=== PATIENT | male | born 1990 | race Caucasian/White ===

== ENCOUNTER 2020-04-29 00:32 | Inpatient (IN) | payer SELFPAY ==
--- NOTE | 2020-04-29 00:51 | W.ED.PSYCH ---
HPI - Psych General: Chief Complaint: Psychiatric Symptoms Stated Complaint: SI Time Seen by Provider: 04/29/20 00:41 Source: patient Mode of arrival: ambulatory Limitations: no limitations History of Present Illness: HPI Narrative: Patient comes in today for attempting suicide. Police Department had brought patient in after finding him in the shower with a cut li to his left forearm. The injury is superficial but the patient does admit that he feels suicidal and wants to kill himself. Patient does have a history of depression. Patient states that he is upset because his estranged partner trying to take the children away from him. Patient is cooperative at once admission into the neuropsychiatric unit. Patient does take duloxetine and trazodone. Patient does admit to using nicotine tobacco and cannabis products. MD complaint: suicidal ideation and feels depressed Associated symptoms: Reports suicidal ideation Review of Systems General: Reports: 10 or more systems reviewed and unremarkable except in HPI and below Psych: Reports: suicidal ideation [facility] ED PFSH: Social History (Updated 01/04/20 @ 15:00 by Satinder Mitchell LPN) Smoking and tobacco status: current every day smoker smokeless tobacco Smokeless tobacco user: chewing tobacco Smokeless tobacco details: 2 cans/ day for 17 yrs Quit status (tobacco): has tried quititng Number of times tried to quit tobacco: 3 Second hand smoke exposure: No Smoking risk assessment/counseling performed?: Yes Tobacco counseling given: counseling >3 minutes Physical Exam Const: COMMON NORMALS: no acute distress and patient oriented x3 GENERAL APPEARANCE: cooperative and well kempt HENMT: COMMON NORMALS: normocephalic and Normal external nose present HEAD & SCALP: normal to inspection and normocephalic NOSE: Normal external nose present MOUTH: Normal oral and palatal mucosa present Eye: GENERAL EYE: appearance normal, both eyes and all related structures Neck/C-Spine: COMMON NORMALS: full ROM Chest: COMMONS NORMALS: normal inspection of the chest Resp: COMMON NORMALS: normal respiratory effort EFFORT & INSPECTION: Yes able to speak in complete sentences Cardio: COMMON NORMALS: regular rate and regular rhythm RATE: regular rate RHYTHM: regular rhythm GI: COMMON NORMALS: non-tender : COMMON NORMALS: Yes no CVA tenderness BLADDER/KIDNEY EXAM: Yes no CVA tenderness Back/Pelvis: COMMON NORMALS: no CVA tenderness and thoracic and lumbar spine normal to inspection Extremity: COMMON NORMALS: normal to inspection Neuro: COMMON NORMALS: patient oriented x3 and moves all extremities Psych: COMMON NORMALS: mental status grossly normal, Normal thought process present, cooperative and speech normal APPEARANCE: Yes well kempt ATTITUDE: Yes calm ACTIVITY/MOTOR BEHAVIOR: Yes appropriate eye contact SPEECH: Yes normal speech MOOD & AFFECT: Yes depressed mood and Yes tearful THOUGHT PROCESS: Normal thought process present THOUGHT CONTENT: Yes Suicidality present ATTENTION/CONCENTRATION: Yes attention grossly intact MEMORY/COGNITION: Yes memory grossly intact INSIGHT: Fair insight present (Psych) JUDGEMENT: Fair judgement present (Psych) Skin: NARRATIVE SKIN EXAM: Superficial 2 cm laceration to the right forearm. MDM - Psych MDM Narrative: Medical decision making narrative: Patient was brought in by [facility] department for concerns of suicide attempt. Patient has a superficial laceration to his left forearm. Patient had called his parents and told him that he was going to kill himself and then hung up the phone. Causing his parents to call the police for a welfare check. Police into the home and found the patient in the bathtub with a shower arm and his left forearm with a superficial injury. Exam notes a 2 cm superficial injury to the left forearm. Respirations are even lungs are clear to auscultation. Patient was cooperative. Patient did admit to wanting to harm himself and commit suicide. Patient was upset due to his estranged partner trying to take the children away from him. Laboratory values were unremarkable. Patient did test positive for cannabis. Reviewed exam and patient with Dr. Villeda who agreed to admission to the neuropsychiatric unit. Dr. Parker was consulted for orders for admission. Patient needs admission for protection of self and assistance with depression. Lab Data: Labs: Lab Results 04/29/20 04/29/20 04/29/20 Range/Units 00:51 00:51 00:51 WBC 13.2 H (4.0-10.0) 10^3/ uL RBC 4.79 (4.1-5.3) 10^6/u L Hgb 15.3 (11.7-16.6) g/dL Hct 45.4 (42.0-52.0) % MCV 94.8 H (80-94) fL MCH 31.9 (28.0-34.0) pg MCHC 33.7 (30.0-36.0) g/dL RDW 12.3 (12.1-15.1) % Plt Count 290 (130-400) 10^3/c mm MPV 8.8 (7.4-10.4) fL Neut % (Auto) 77.5 % Lymph % (Auto) 15.6 % [place] % (Auto) 6.2 % Eos % (Auto) 0.2 % Baso % (Auto) 0.3 % Neut # (Auto) 10.2 H (1.8-7.7) 10^3/u L Lymph # (Auto) 2.1 (0.8-4.8) 10^3/u L [place] # (Auto) 0.8 (0.2-0.9) 10^3/u L Eos # (Auto) 0.0 (0.0-0.8) 10^3/u L Baso # (Auto) 0.0 (0.0-0.1) 10^3/u L Nucleated RBC % (a uto) 0 % Nucleated RBCs # 0.0 /100WBC Sodium 137 (136-145) mmol/L Potassium 4.3 (3.5-5.1) mmol/L Chloride 101 (98-107) mmol/L Carbon Dioxide 24 (22-29) mmol/L Anion Gap 16.3 (5-19) BUN 9 (6-20) mg/dL Creatinine 1.0 (0.7-1.2) mg/dL GFR Calculation 87.7 L (90-130) mL/min Glucose 96 (65-115) mg/dL Calculated Osmolal ity 280 L (285-295) mOsm/k g Calcium 10.2 (8.5-10.5) mg/dL Magnesium 2.3 (1.7-2.3) mg/dL Total Bilirubin 0.5 (0.15-1.2) mg/dL AST 23 (0-40) U/L ALT 17 (0-41) U/L Alkaline Phosphata se 61 (40-130) IU/L Total Protein 7.6 (6.6-8.7) g/dL Albumin 4.9 (3.5-5.2) g/dL Globulin 2.7 (1.3-4.6) g/dL TSH 2.00 (0.27-4.20) uIU/ mL Urine Color (Yellow) Urine Appearance (CLEAR) Urine pH (5-7) Ur Specific Gravit y (1.005-1.030) Urine Protein (Negative) Urine Glucose (UA) (Normal) Urine Ketones (Negative) Urine Blood (Negative) Urine Nitrate (Negative) Urine Bilirubin (NEGATIVE) Urine Urobilinogen (Negative) mg/dL Ur Leukocyte Luzmaria ase (Negative) Urine RBC (0-2) /hpf Urine WBC (0-5) /hpf Ur Squamous Epith Cells (0-5) Urine Bacteria (NONE) Salicylates < 0.3 L (3-10) mg/dL Urine Opiates Scre en (Negative) ng/mL Acetaminophen < 5.0 L (10-30) ug/mL Ur Barbiturates Sc reen (Negative) ng/mL Phenytoin < 0.8 L (10-20) ug/mL Valproic Acid < 2.8 L (50-100) mcg/mL Carbamazepine < 2.0 L (4.0-12.0) ug/mL Ur Phencyclidine S crn (Negative) ng/mL Ur Amphetamines Sc reen (Negative) ng/mL U Benzodiazepines Scrn (Negative) ng/mL [place] < 0.1 L (0.6-1.2) mmol/L Urine Cocaine Scre en (Negative) ng/mL U Marijuana (THC) Screen (Negative) ng/mL Ethyl Alcohol < 10 (0-10) mg/dL 04/29/20 04/29/20 Range/Units 01:02 01:02 WBC (4.0-10.0) 10^3/ uL RBC (4.1-5.3) 10^6/u L Hgb (11.7-16.6) g/dL Hct (42.0-52.0) % MCV (80-94) fL MCH (28.0-34.0) pg MCHC (30.0-36.0) g/dL RDW (12.1-15.1) % Plt Count (130-400) 10^3/c mm MPV (7.4-10.4) fL Neut % (Auto) % Lymph % (Auto) % [place] % (Auto) % Eos % (Auto) % Baso % (Auto) % Neut # (Auto) (1.8-7.7) 10^3/u L Lymph # (Auto) (0.8-4.8) 10^3/u L [place] # (Auto) (0.2-0.9) 10^3/u L Eos # (Auto) (0.0-0.8) 10^3/u L Baso # (Auto) (0.0-0.1) 10^3/u L Nucleated RBC % (a uto) % Nucleated RBCs # /100WBC Sodium (136-145) mmol/L Potassium (3.5-5.1) mmol/L Chloride (98-107) mmol/L Carbon Dioxide (22-29) mmol/L Anion Gap (5-19) BUN (6-20) mg/dL Creatinine (0.7-1.2) mg/dL GFR Calculation (90-130) mL/min Glucose (65-115) mg/dL Calculated Osmolal ity (285-295) mOsm/k g Calcium (8.5-10.5) mg/dL Magnesium (1.7-2.3) mg/dL Total Bilirubin (0.15-1.2) mg/dL AST (0-40) U/L ALT (0-41) U/L Alkaline Phosphata se (40-130) IU/L Total Protein (6.6-8.7) g/dL Albumin (3.5-5.2) g/dL Globulin (1.3-4.6) g/dL TSH (0.27-4.20) uIU/ mL Urine Color Straw (Yellow) Urine Appearance Clear (CLEAR) Urine pH 6.5 (5-7) Ur Specific Gravit y 1.010 (1.005-1.030) Urine Protein Neg (Negative) Urine Glucose (UA) Norm (Normal) Urine Ketones Negative (Negative) Urine Blood Neg (Negative) Urine Nitrate Negative (Negative) Urine Bilirubin Neg (NEGATIVE) Urine Urobilinogen Norm (Negative) mg/dL Ur Leukocyte Luzmaria ase Negative (Negative) Urine RBC Rare (0-2) /hpf Urine WBC 0-4 H (0-5) /hpf Ur Squamous Epith Cells 0-4 H (0-5) Urine Bacteria Trace (NONE) Salicylates (3-10) mg/dL Urine Opiates Scre en Negative (Negative) ng/mL Acetaminophen (10-30) ug/mL Ur Barbiturates Sc reen Negative (Negative) ng/mL Phenytoin (10-20) ug/mL Valproic Acid (50-100) mcg/mL Carbamazepine (4.0-12.0) ug/mL Ur Phencyclidine S crn Negative (Negative) ng/mL Ur Amphetamines Sc reen Negative (Negative) ng/mL U Benzodiazepines Scrn Negative (Negative) ng/mL [place] (0.6-1.2) mmol/L Urine Cocaine Scre en Negative (Negative) ng/mL U Marijuana (THC) Screen Positive H (Negative) ng/mL Ethyl Alcohol (0-10) mg/dL EKG Data^: EKG 1: Attestation: I personally reviewed and interpreted this EKG as follows: (145, sinus rhythm, rate of 99 bpm and regular, no ST elevation, no ectopy.) Discharge Plan Discharge Admit Provider: Robert Villeda Coding Level of Care Code ED Associate Professor Of Management for [facility] Fwd Exam Comprehensive
[2020-04-29 01:01] LABS: Basophils % 0.3 %; Eosinophils % 0.2 %; Hematocrit 45.4 % (42.0-52.0); Hemoglobin 15.3 g/dL (11.7-16.6); Lymphocytes # 2.1 10^3/uL (0.8-4.8); Lymphocytes % 15.6 %; Mean Corpuscular HGB Conc 33.7 g/dL (30.0-36.0); Mean Corpuscular Hemoglobin 31.9 pg (28.0-34.0); Mean Corpuscular Volume 94.8 fL (80-94); Mean Platelet Volume 8.8 fL (7.4-10.4); Monocytes # 0.8 10^3/uL (0.2-0.9); Monocytes % 6.2 %; Neutrophils # 10.2 10^3/uL (1.8-7.7); Neutrophils % 77.5 %; Nucleated Red Blood Cells % 0 %; Platelet Count 290 10^3/cmm (130-400); Red Blood Count 4.79 10^6/uL (4.1-5.3); Red Cell Distribution Width 12.3 % (12.1-15.1); White Blood Count 13.2 10^3/uL (4.0-10.0)
[2020-04-29 01:20] LABS: Carbamazepine Tegretol < 2.0 ug/mL (4.0-12.0); Phenytoin Dilantin < 0.8 ug/mL (10-20); Valproic Acid Level < 2.8 mcg/mL (50-100)
[2020-04-29] MEDS: nicotine 21 mg Patch 1 PATCH TRANSDERMA (01:22)
[2020-04-29 01:25] LABS: Bilirubin Urine Neg (NEGATIVE); Blood Urine Neg (Negative); Glucose Urine UA Norm (Normal); Ketones Urine Negative (Negative); Leukocyte Esterase Urine Negative (Negative); Nitrate Urine Negative (Negative); Protein Urine Neg (Negative); Urine Appearance Clear (CLEAR); Urine Color Straw (Yellow); Urobilinogen Urine Norm (Negative); pH Urine 6.5 (5-7)
[2020-04-29 01:25] LABS: Alanine Aminotransferase 17 U/L (0-41); Albumin Level 4.9 g/dL (3.5-5.2); Alkaline Phosphatase 61 IU/L (40-130); Anion Gap 16.3 (5-19); Aspartate Amino Transferase 23 U/L (0-40); Blood Urea Nitrogen 9 mg/dL (6-20); Calcium 10.2 mg/dL (8.5-10.5); Carbon Dioxide 24 mmol/L (22-29); Chloride 101 mmol/L (98-107); Globulin 2.7 g/dL (1.3-4.6); Glomerular Filtration Rate 87.7 mL/min (90-130); Glucose 96 mg/dL (65-115); Magnesium 2.3 mg/dL (1.7-2.3); Osmolality Calculated 280 mOsm/kg (285-295); Potassium 4.3 mmol/L (3.5-5.1); Sodium 137 mmol/L (136-145); Total Bilirubin 0.5 mg/dL (0.15-1.2); Total Protein 7.6 g/dL (6.6-8.7)
[2020-04-29 01:26] LABS: Add Urine Culture? No; Amphetamines Screen Urine Negative (Negative); Bacteria Urine TRACE; Barbiturates Screen Urine Negative (Negative); Benzodiazepines Screen Urine Negative (Negative); Cocaine Screen Urine Negative (Negative); Opiate Screen Urine Negative (Negative); PCP Screen Urine Negative (Negative); RBC Urine RARE /hpf (0-2); Squamous Epithelial Cell Urine 0-4 (0-5); THC Screen Urine Positive (Negative); WBC Urine 0-4 /hpf (0-5)
[2020-04-29 01:29] LABS: Acetaminophen < 5.0 ug/mL (10-30); Alcohol Level < 10 mg/dL (0-10); Salicylate < 0.3 mg/dL (3-10)
[2020-04-29 01:38] VITALS: BP 154/89; PULSE 96; RESP 20; TEMP 36.8; O2SAT 97; BMI 27.3
[2020-04-29 01:40] LABS: Lithium < 0.1 mmol/L (0.6-1.2)
[2020-04-29 02:03] VITALS: BP 148/85; PULSE 88; RESP 18; O2SAT 97
[2020-04-29 02:17] VITALS: BP 137/98; PULSE 104; RESP 19; TEMP 37.1; O2SAT 100
[2020-04-29] MEDS: hyDROXYzine 25 mg Capsule 50 MG PO (02:40)
[2020-04-29] MEDS: trazodone 50 mg Tablet PO (02:41)
[2020-04-29 06:00] VITALS: BP 133/80; PULSE 103; RESP 18; TEMP 36.9; O2SAT 98
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
[2020-04-29] MEDS: duloxetine 60 mg Capsule PO (16:15)
[2020-04-29 16:16] VITALS: BP 133/80; PULSE 103; RESP 18; TEMP 36.9; O2SAT 98
--- NOTE | 2020-05-01 12:39 | PC.RESP ---
SMOKING CESSATION INFORMATION SENT TO PATIENT
== END 2020-04-29 16:27 | disposition home or self-care (01) | DRG 885 ==
LOC: ER 00:45 → NP 01:56
PROVIDERS: Emergency Medicine; Admitting Provider Psychiatry & Neurology Psychiatry; Visit Provider Psychiatry & Neurology Psychiatry
DX: F33.2 Major depressive disorder, recurrent severe without psychotic features (principal); F41.9 Anxiety disorder, unspecified; F43.12 Post-traumatic stress disorder, chronic; F17.210 Nicotine dependence, cigarettes, uncomplicated; F12.20 Cannabis dependence, uncomplicated
CPT/HCPCS: 12345; 80053; 80156; 80164; 80178; 80185; 80306; 80307; 81001; 83735; 84443; 85025; 99282

== ENCOUNTER 2020-11-29 23:14 | Emergency (ER) | payer SELFPAY ==
[2020-11-29 23:24] VITALS: BP 158/107; PULSE 86; RESP 24; TEMP 36.7; O2SAT 96; BMI 29.2
--- NOTE | 2020-11-29 23:46 | W.ED.DENTAL ---
HPI - Dental/Oral General: Chief complaint: Dental/Oral Stated complaint: oral pain Time Seen by Provider: 11/29/20 23:30 History of Present Illness: HPI Narrative: Patient has a wisdom tooth that is coming through on the left upper sides been present for about a month and he has intermittent pain with this area. MD Complaint: tooth pain Teeth map: 1. Onset (ago): hour(s) Duration: constant Severity: severe Severity scale (1-10): 7 Relieving factors: nothing Context: poor dental care Associated symptoms: Reports no associated symptoms; Denies fever(s) Treatment prior to arrival: topical analgesic and oral analgesic Review of Systems Const: Denies: fever(s) or chills ENMT: Reports: other (Impacted wisdom tooth) Psych: Denies: anxiety or depression PFS ED PFSH: Social History (Updated 01/04/20 @ 15:00 by Satidner Mitchell LPN) Smoking and tobacco status: current every day smoker smokeless tobacco Smokeless tobacco user: chewing tobacco Smokeless tobacco details: 2 cans/ day for 17 yrs Quit status (tobacco): has tried quititng Number of times tried to quit tobacco: 3 Second hand smoke exposure: No Smoking risk assessment/counseling performed?: Yes Tobacco counseling given: counseling >3 minutes Physical Exam Const: COMMON NORMALS: average body habitus GENERAL APPEARANCE: cooperative OTHER: Appears in pain HENMT: TEETH & GINGIVA IMAGES: 1. [place] tooth coming through the side of the gum Psych: COMMON NORMALS: mental status grossly normal Course Vital Signs: Vital signs: Vital Signs Temperature 98.1 F 11/29/20 23:24 Pulse Rate 86 11/29/20 23:24 Respiratory Rate 24 H 11/29/20 23:24 Blood Pressure 158/107 11/29/20 23:24 Pulse Oximetry 96 11/29/20 23:24 Discharge Plan Discharge Patient Disposition: Home Clinical Impression: Impacted tooth Condition: Stable Prescriptions: New tramadol 50 mg tablet 50 mg PO TID PRN (Reason: pain) Qty: 14 RF: 0 clindamycin HCl 300 mg capsule 300 mg PO TID 10 Days Qty: 30 RF: 0 No Action prazosin 5 mg capsule 5 mg PO .HS Qty: 30 RF: 2 trazodone 100 mg tablet 200 mg PO .HS Qty: 60 RF: 2 duloxetine 30 mg Capsule,Delayed Release(Dr/Ec) 60 mg PO DAILY 30 Days Qty: 60 RF: 1 Discharge Orders: Discharge ED (Routine); Ordered 11/29/20 Ordered By: Reji Barrientos Discharge Diet: Usual diet Discharge Activity: Resume usual activity Patient Instructions: Toothache (ED) Activity Restrictions/Additional Instructions: Follow-up with medical provider as directed. Take medications as prescribed. Return to the ER or your medical provider if condition worsens. Please read and understand discharge instructions. If any questions ask please. Follow-up at [facility] in [place] are the [facility] clinic here in [place] or with a dentist as soon as possible Coding Level of Care Code ED Occupational Medicine Specialist for [facility]
[2020-11-29] MEDS: clindamycin 150 mg Capsule 300 MG PO (23:47)
[2020-11-29] MEDS: HYDROcodone-acetaminophen 7.5-325 mg Tablet 1 TAB PO (23:47)
[2020-11-29] MEDS: TRAMadol 50 mg Tablet 100 MG PO (23:47)
== END 2020-11-29 23:53 | disposition home or self-care (01) ==
PROVIDERS: Emergency Provider Nurse Practitioner Family
DX: K01.1 Impacted teeth (principal); F17.220 Nicotine dependence, chewing tobacco, uncomplicated
CPT/HCPCS: 12345; 99281; 99283

== ENCOUNTER 2020-12-19 19:32 | Emergency (ER) | payer SELFPAY ==
[2020-12-19 19:49] VITALS: BP 145/94; PULSE 97; RESP 14; TEMP 36.3; O2SAT 98; BMI 25.8
--- NOTE | 2020-12-19 19:49 | W.ED.DENTAL ---
HPI - Dental/Oral General: Chief complaint: Dental/Oral Stated complaint: abcess tooth Time Seen by Provider: 12/19/20 19:45 Source: patient Mode of arrival: ambulatory Limitations: no limitations History of Present Illness: HPI Narrative: Patient is a 30-year-old male who presents to ED today with a complaint of dental pain. Patient tells me he has several wisdom teeth coming in that are causing crowding of his other teeth. He states the crowding has caused one of the teeth to break. Patient was seen at our facility approximately 3 weeks ago for pain related to his wisdom teeth. He tells me he never got his prescriptions filled at that time. He was able to recently fill the prescription for clindamycin and is currently taking that. Patient has a dental appointment scheduled in January for wisdom tooth extraction. He has not noticed any facial swelling. MD Complaint: tooth pain Teeth map: 1. broken tooth; no abscess present Onset (ago): day(s) Duration: constant Severity: severe Relieving factors: other (cold fluids) Associated symptoms: Denies ear or mastoid pain, fever(s) or odynophagia Review of Systems Const: Denies: fever(s) ENMT: Reports: dental pain; Denies: odynophagia, ear or mastoid pain, nasal discharge, nasal congestion or sinus pain Card: Denies: chest pain Resp: Denies: dyspnea GI: Denies: nausea or vomiting Musc: Denies: neck pain Skin/Breast: Denies: rash Neuro: Denies: headache(s) PFS ED PFSH: Social History (Updated 01/04/20 @ 15:00 by Satinder Mitchell LPN) Smoking and tobacco status: current every day smoker smokeless tobacco Smokeless tobacco user: chewing tobacco Smokeless tobacco details: 2 cans/ day for 17 yrs Quit status (tobacco): has tried quititng Number of times tried to quit tobacco: 3 Second hand smoke exposure: No Smoking risk assessment/counseling performed?: Yes Tobacco counseling given: counseling >3 minutes Physical Exam Const: COMMON NORMALS: no acute distress, average body habitus, patient oriented x3, no limitations, healthy appearing, alert and well nourished GENERAL APPEARANCE: cooperative ORIENTATION/CONSCIOUSNESS: Yes awake, Yes oriented to person, Yes oriented to place and Yes oriented to time HENMT: COMMON NORMALS: normocephalic, atraumatic, external ears normal, Normal external nose present, moist oral mucous membranes, oropharynx normal and gingiva normal HEAD & SCALP: normal to inspection, normocephalic and atraumatic FACE & SINUS: normal facial exam and sinuses nontender NOSE: Normal external nose present EXTERNAL EAR: Yes external ears normal MOUTH: Normal oral and palatal mucosa present, lip normal, tongue normal and Normal salivary glands and ducts present TEETH & GINGIVA: Yes poor dentition and Yes other (broke tooth) THROAT: posterior oropharynx normal, tonsils normal and uvula midline Neck/C-Spine: COMMON NORMALS: full ROM, no lymphadenopathy and no meningeal signs Neuro: SKYLAR COMA SCALE: document GCS findings Skylar coma scale eye opening: Spontaneous [place] coma scale verbal response: Orientated [place] coma scale motor response: Obey commands [place] coma scale total score: 15 COMMON NORMALS: patient oriented x3 and CN's II-XII intact bilaterally SENSORIUM/ORIENTATION: Yes alert, Yes oriented to person, Yes oriented to place and Yes oriented to time MENINGEAL SIGNS: Yes no meningeal signs Skin: COMMON NORMALS: no rashes or lesions noted GENERAL SKIN EXAM: no rashes or lesions noted Course Vital Signs: Vital signs: Vital Signs Temperature 97.3 F L 12/19/20 19:49 Pulse Rate 92 12/19/20 20:09 Respiratory Rate 18 12/19/20 20:09 Blood Pressure 142/90 12/19/20 20:09 Pulse Oximetry 98 12/19/20 20:09 MDM - Dental/Oral MDM Narrative: Medical decision making narrative: He can continue taking the Clindamycin. Will give something for pain. Recommend he keep current scheduled dentist appointment. Return to ED precautions given. Discharge Plan Discharge Patient Disposition: Home Clinical Impression: Toothache Condition: Stable Prescriptions: Continued tramadol 50 mg tablet 50 mg PO TID PRN (Reason: pain) Qty: 14 RF: 0 No Action prazosin 5 mg capsule 5 mg PO .HS Qty: 30 RF: 2 trazodone 100 mg tablet 200 mg PO .HS Qty: 60 RF: 2 duloxetine 30 mg Capsule,Delayed Release(Dr/Ec) 60 mg PO DAILY 30 Days Qty: 60 RF: 1 Discharge Orders: Discharge ED (Routine); Ordered 12/19/20 Ordered By: Keisha Lofton Patient Instructions: Toothache (ED), Toothache Coding Level of Care Code ED Devops Architect for Chasity Bellamy
[2020-12-19 20:09] VITALS: BP 142/90; PULSE 92; RESP 18; O2SAT 98
== END 2020-12-19 20:09 | disposition home or self-care (01) ==
PROVIDERS: Emergency Provider Physician Assistant
DX: K08.89 Other specified disorders of teeth and supporting structures (principal); F17.220 Nicotine dependence, chewing tobacco, uncomplicated
CPT/HCPCS: 12345; 99281; 99282

== ENCOUNTER 2021-09-16 13:25 | Inpatient (IN) | payer SELFPAY ==
[2021-09-16 13:37] VITALS: BP 135/90; PULSE 112; RESP 19; TEMP 36.8; O2SAT 95; BMI 23.6
--- NOTE | 2021-09-16 13:43 | W.ED.GENADLT ---
HPI - General Adult General: Chief complaint: Psychiatric Symptoms Stated complaint: SI Time Seen by Provider: 09/16/21 13:37 History of Present Illness: HPI narrative: HPI: [31]yo patient w/ hx of depression BIBA for acute suicidal ideation. for On arrival, the patient is AAOx3 and cooperative with my evaluation. No focal complaints of chest pain, shortness of breath, palpitations, N/V, focal GI/ complaints. Denies any HI. No complaints of hallucinations. Onset: chronic Duration: ongoing Location: home Severity: severe Review of Systems Narrative: Constitutional: No fever, no chills. HEENT: No vision changes CV: No chest pain, no palpitations PULM: No productive cough, no dyspnea. GI: No abdominal pain, no N/V/D. : No dysuria MSKEL: No muscle pain SKIN: No new rashes, no lesions. NEURO: No headache, no focal weakness. HEME: No visible bruises PSYCH: Depressed mood, +SI PFSH ED PFSH: Social History (Updated 01/04/20 @ 15:00 by Satinder Mitchell LPN) Smoking and tobacco status: current every day smoker smokeless tobacco Smokeless tobacco user: chewing tobacco Smokeless tobacco details: 2 cans/ day for 17 yrs Quit status (tobacco): has tried quititng Number of times tried to quit tobacco: 3 Second hand smoke exposure: No Smoking risk assessment/counseling performed?: Yes Tobacco counseling given: counseling >3 minutes Physical Exam Narrative: EXAM NARRATIVE: Head: Atraumatic Eyes: PERRL, conjunctiva without injection, eyes tracking ENT: Mucous membrane moist NECK: Supple without lymphadenopathy LUNGS: LCTAB CV: RRR ABDOMEN: Soft, nontender EXTREMITY: Normal ROM SKIN: No rash or erythema NEURO: Awake and alert. No focal weakness PSYCH: Cooperative mood and affect. Course Vital Signs: Vital signs: Vital Signs Temperature 97.3 F L 09/18/21 06:00 Pulse Rate 63 09/18/21 06:00 Respiratory Rate 16 09/18/21 06:00 Blood Pressure 107/63 09/18/21 06:00 Pulse Oximetry 97 09/18/21 06:00 MDM - General Adult MDM Narrative: Medical decision making narrative: [31]yo patient w/ hx of depression presenting for SI. HDS, exam within normal limit Thoughts are linear and organized, and the patient has no AH/VH, or HI. Clinically the patient displays no overt toxidrome; they are well appearing, with low suspicion for toxic ingestion given history and exam. Symptoms unlikely 2/2 anemia, hypothyroidism, infection, or ICH. Workup: CBC, CMP, Lipase, salicylate/tylenol, UDS Lab findings: wnl, +ampethamine in urine, and +marijuana in urine [3:50pm] On reassessment, labs and workup wnl. Patient is hemodynamically stable with no acute medical complaints. Case discussed with psychiatric provider Dr. Villeda at [facility] psych inpatient with recommendation for admission Disposition: Psych Lab Data: Labs: Lab Results 09/16/21 09/16/21 09/16/21 14:22 15:14 15:14 WBC 11.4 10^3/uL H 10 ^3/uL (4.0-10.0) RBC 5.22 10^6/uL 10^6 /uL (4.1-5.3) Hgb 16.6 g/dL g/dL (11.7-16.6) Hct 48.3 % % (42.0-52.0) MCV 92.5 fl fl (80-94) MCH 31.8 pg pg (28.0-34.0) MCHC 34.4 g/dL g/dL (30.0-36.0) RDW 12.6 % % (12.1-15.1) Plt Count 285 10^3/cmm 10^3 /cmm (130-400) MPV 8.8 fL fL (7.4-10.4) Neut % (Auto) 67.8 % % Lymph % (Auto) 22.3 % % Runnels % (Auto) 8.3 % % Eos % (Auto) 1.0 % % Baso % (Auto) 0.4 % % Neut # (Auto) 7.72 10^3/uL H 10 ^3/uL (1.8-7.7) Lymph # (Auto) 2.5 10^3/uL 10^3/ uL (0.8-4.8) Runnels # (Auto) 0.9 10^3/uL 10^3/ uL (0.2-0.9) Eos # (Auto) 0.1 10^3/uL 10^3/ uL (0.0-0.8) Baso # (Auto) 0.0 10^3/uL 10^3/ uL (0.0-0.1) Nucleated RBC % (a uto) 0 % % Nucleated RBCs # 0.0 /100WBC /100W BC Sodium 134 mmol/L L mmol /L (136-145) Potassium 4.2 mmol/L mmol/L (3.5-5.1) Chloride 98 mmol/L mmol/L (98-107) Carbon Dioxide 19 mmol/L L mmol/ L (22-29) Anion Gap 21.2 H (5-19) BUN 15 mg/dL mg/dL (6-20) Creatinine 1.0 mg/dL mg/dL (0.7-1.2) GFR Calculation 86.6 mL/min L mL/ min (90-130) Glucose 77 mg/dL mg/dL (65-115) Calculated Osmolal ity 278 mOsm/kg L mOs m/kg (285-295) Calcium 9.6 mg/dL mg/dL (8.5-10.5) Salicylates < 0.3 mg/dL L mg/ dL (3-10) Urine Opiates Scre en Negative ng/mL ng /mL (Negative) Acetaminophen < 5.0 ug/mL L ug/ mL (10-30) Ur Barbiturates Sc reen Negative ng/mL ng /mL (Negative) Ur Phencyclidine S crn Negative ng/mL ng /mL (Negative) Ur Amphetamines Sc reen Positive ng/mL H ng/mL (Negative) U Benzodiazepines Scrn Negative ng/mL ng /mL (Negative) Urine Cocaine Scre en Negative ng/mL ng /mL (Negative) U Marijuana (THC) Screen Positive ng/mL H ng/mL (Negative) Discharge Plan Discharge Patient Disposition: Admitted As Inpatient Admit Provider: Robert Villeda Clinical Impression: Suicide ideation Condition: Stable Coding Level of Care Code ED Technology Applications Teacher for Chasity Bellamy
--- NOTE | 2021-09-16 13:50 | PC.PHAR ---
PT STATES HE TAKES NO RX OR OTC MEDICATIONS-PT STATES HE HASNT TAKEN RX MEDICATION IN AT LEAST 6 MONTHS
[2021-09-16 14:06] VITALS: BP 122/81; PULSE 112; RESP 16; TEMP 36.9; O2SAT 96
[2021-09-16 14:39] LABS: Amphetamines Screen Urine Positive (Negative); Barbiturates Screen Urine Negative (Negative); Benzodiazepines Screen Urine Negative (Negative); Cocaine Screen Urine Negative (Negative); Opiate Screen Urine Negative (Negative); PCP Screen Urine Negative (Negative); THC Screen Urine Positive (Negative)
[2021-09-16 15:25] LABS: Basophils % 0.4 %; Eosinophils # 0.1 10^3/uL (0.0-0.8); Hematocrit 48.3 % (42.0-52.0); Hemoglobin 16.6 g/dL (11.7-16.6); Lymphocytes # 2.5 10^3/uL (0.8-4.8); Lymphocytes % 22.3 %; Mean Corpuscular HGB Conc 34.4 g/dL (30.0-36.0); Mean Corpuscular Hemoglobin 31.8 pg (28.0-34.0); Mean Corpuscular Volume 92.5 fl (80-94); Mean Platelet Volume 8.8 fL (7.4-10.4); Monocytes # 0.9 10^3/uL (0.2-0.9); Monocytes % 8.3 %; Neutrophils # 7.72 10^3/uL (1.8-7.7); Neutrophils % 67.8 %; Nucleated Red Blood Cells % 0 %; Platelet Count 285 10^3/cmm (130-400); Red Blood Count 5.22 10^6/uL (4.1-5.3); Red Cell Distribution Width 12.6 % (12.1-15.1); White Blood Count 11.4 10^3/uL (4.0-10.0)
[2021-09-16 15:44] LABS: Anion Gap 21.2 (5-19); Blood Urea Nitrogen 15 mg/dL (6-20); Calcium 9.6 mg/dL (8.5-10.5); Carbon Dioxide 19 mmol/L (22-29); Chloride 98 mmol/L (98-107); Glomerular Filtration Rate 86.6 mL/min (90-130); Glucose 77 mg/dL (65-115); Osmolality Calculated 278 mOsm/kg (285-295); Potassium 4.2 mmol/L (3.5-5.1); Sodium 134 mmol/L (136-145)
[2021-09-16 15:54] LABS: Acetaminophen < 5.0 ug/mL (10-30); Salicylate < 0.3 mg/dL (3-10)
[2021-09-16 16:34] VITALS: BP 122/81; PULSE 112; RESP 16; TEMP 36.9; O2SAT 96
[2021-09-16 16:35] VITALS: BP 157/79; PULSE 94; RESP 17; TEMP 36.8; O2SAT 99
[2021-09-16] MEDS: nicotine 2 mg Gum BUCCAL (17:19)
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
--- NOTE | 2021-09-16 17:45 | PC.NURSE ---
PATIENT REPORTS A HISTORY OF BEING ADMITTED A YOUTH AT [facility] FOR BEHAVIOR ISSUES BUT DOESN'T REMEMBER TAKING MEDICATION OR GOING TO THERAPY AFTER DISCHARGE. ALSO RELATES A PREVIOUS ADMISSION AN ADULT, DX WITH PTSD, I WAS ON MEDS BUT I DON'T THINK THEY WERE THE RIGHT ONES FOR ME AND I STOPPED TAKING THEM.
[2021-09-16 20:03] VITALS: BP 124/78; PULSE 85; RESP 20; TEMP 36.6; O2SAT 98
[2021-09-16] MEDS: trazodone 50 mg Tablet PO (21:25)
[2021-09-16] MEDS: hyDROXYzine 25 mg Capsule 50 MG PO (21:25)
[2021-09-17 06:00] VITALS: BP 111/74; PULSE 69; RESP 17; TEMP 36.7; O2SAT 97
--- NOTE | 2021-09-17 11:47 | NPU.GN ---
[facility] Group Topic:Milady General Mood of Group: Fer did not attend group therapy today.
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
[2021-09-17] MEDS: nicotine 2 mg Gum BUCCAL ×2 (13:51→18:44)
[2021-09-17 14:00] VITALS: BP 119/84; PULSE 90; RESP 17; TEMP 36.6; O2SAT 95
--- NOTE | 2021-09-17 17:09 | PC.NURSE ---
CALLED [facility] TO CLARIFY HOME MEDS, THEY STATED HE FILLED 04/30/2020 & 02/2020 CYMBALTA 60 MG DAILY TRAZODONE 200 MG HS PRAZOSIN 5 MG DAILY INFO RELAYED TO DR. MAST
[2021-09-17 20:37] VITALS: BP 122/78; PULSE 74; RESP 16; TEMP 36.9; O2SAT 97
[2021-09-17] MEDS: mirtazapine 15 mg Tablet PO (21:18)
[2021-09-17] MEDS: trazodone 50 mg Tablet PO (21:18)
[2021-09-17] MEDS: BuSPIRONE 10 mg Tablet 15 MG PO (21:18)
[2021-09-17] MEDS: hyDROXYzine 25 mg Capsule 50 MG PO (21:19)
--- NOTE | 2021-09-18 03:34 | PC.NURSE ---
Fer is a 31 year old male admitted to this unit on September 16 for SI. Patient stated he did have feelings/thoughts of being better off . He stated he was trying to talk to his Mom on the phone and a patient on the unit was being loud around him. He felt that was disrespectful and eventually yelled at the other patient. Patient stated he felt bad about yelling at this other patient on the unit. Patient stated their verbal altercation, he felt bad because I'm sure he had his own problems, that's why we're all here, isn't it? Discussed healthier options to handle similar future situations to avoid altercations by letting the staff know. Discussed healthier ways to resolve such issues in the future. Patient denies any SI plans, but admitted to thinking about suicide at least two or three times today. Patient denies being sob, pain or HI at this time.
[2021-09-18 06:00] VITALS: BP 107/63; PULSE 63; RESP 16; TEMP 36.3; O2SAT 97
[2021-09-18] MEDS: BuSPIRONE 10 mg Tablet 15 MG PO ×2 (09:25→20:18)
[2021-09-18] MEDS: nicotine 2 mg Gum BUCCAL ×5 (09:25→20:59)
--- NOTE | 2021-09-18 10:46 | P.PN_ITS ---
Subjective NPU Subjective: Interval history: Patient presents today reporting that the medications have been effective thus far. He reports a plan to work with the treatment team to look at options to help avoid fighting himself in the situation again. We discussed the process by which to get his medication and making sure that he engages in follow-up to be able to continue to have access to these resources. We discussed Dr. Trivedi tomorrow and the possibility of discharge in the next 48 hours depending on what sober living follow-up in the treatment team arranged. Mental Status Exam MSE Comments: This is a short, well-nourished well-developed white male in hospital scrubs with adequate grooming and eye contact. No abnormal movements . Cooperative with exam in no acute distress. Speech was normal rate and volume. Mood described as a little better, affect congruent. Thought process organized. Thought content: Patient endorsed having suicidal ideation but denied homicidal ideation, there were no delusions reported or noted any auditory visual hallucinations. Attention and concentration were intact and memory appeared reliable but none were formally tested. He is alert and oriented x3. Insight and judgment is fair, impulse control is impaired. Vitals/I&O/Wt Last Vital Signs Temp 97.3 F L 09/18/21 06:00 Pulse 63 09/18/21 06:00 Resp 16 09/18/21 06:00 BP 107/63 09/18/21 06:00 Pulse Ox 97 09/18/21 06:00 Data NPU : 09/16/21 15:14 09/16/21 15:14 A&P Additional A&P Information (1) Suicide ideation: (2) Other stimulant dependence, uncomplicated: (3) Cannabis dependence, uncomplicated: (4) Generalized anxiety disorder: (5) Major depressive disorder, recurrent severe without psychotic features: (6) Post-traumatic stress disorder, chronic: Additional A&P Information This is a 31-year-old white male with a long history of addiction, trauma, depression and anxiety who presents having relapsed and off of his medication open to restarting treatment. 1. Continue current medication. 2. Continue every 15 minute checks for safety. 3. Encourage individual, group and milieu therapies. 4. Encourage sober living treatment after discharge at the highest level of care to which he is willing to commit. Involuntary Hold Information 96 Hour Hold: 96 Hour Involuntary Admission: No Attestations NPU Medical Necessity Statement*: Inpatient hospitalization is medically necessary and the clinically appropriate intervention at this time. We will monitor m edications and make changes as indicated. Likely length of stay 2-4 days. Coding Level of Care Code Acute Roof Technician for Chasity Bellamy
--- NOTE | 2021-09-18 12:09 | NPU.GN ---
[facility] Group Topic:Coping Skills Bingo/ Cross word puzzle General Mood of Group: Fer did attend and participate in group therapy this morning. Fer was quiet and stayed to himself.
[2021-09-18 14:00] VITALS: BP 114/72; PULSE 70; RESP 18; TEMP 36.2; O2SAT 98
[2021-09-18 19:57] VITALS: BP 129/81; PULSE 73; RESP 20; TEMP 37; O2SAT 97
[2021-09-18] MEDS: mirtazapine 15 mg Tablet PO (20:18)
[2021-09-19 06:00] VITALS: BP 103/66; PULSE 56; RESP 16; TEMP 36.8; O2SAT 99
[2021-09-19] MEDS: BuSPIRONE 10 mg Tablet 15 MG PO ×2 (08:17→20:02)
[2021-09-19] MEDS: nicotine 2 mg Gum BUCCAL ×5 (08:17→20:01)
--- NOTE | 2021-09-19 12:50 | NPU.GN ---
[facility] Group Topic:Coping Kills Checklist General Mood of Group: Fer attended group and participated. Fer seemed to be in great sprits today. Fer met with this music writer after group wanting information on [facility] services. Fer opened up to this music writer about trauma and things that he would like help with to get his life back on track for himself and his children. This music writer aided patient in filling out the intake form. Fer stated that he wants to stay in [place] close to his children, not the other [facility] place that wont let him have his mental health medications. Fer reported that he needs his mental health medications or he will not do well. This music writer passed the information on to web services developer team in hopes of finding him housing within [place] and where he can have his medications.
[2021-09-19 14:00] VITALS: BP 144/88; PULSE 87; RESP 18; TEMP 36.9; O2SAT 98
--- NOTE | 2021-09-19 16:31 | PM.NPN ---
Subjective NPU Subjective: Interval history: I discussed the patient's case with Dr. Villeda and the treatment team. They say he has lost his house and his relationship because of his drug use. He wants to go to treatment. He [facility] been accepted [facility] a [facility], but would need to stop his medications to attend to their program. I met with the patient in person. He says today has been rough at times, he has really intense sadness in which he feels like crying but does not want to look vulnerable. He has significant rumination at bedtime which causes initial insomnia. He still has strong feelings of worthlessness and shame which can cause him to feel he would be better off or should kill himself. He does feel the medication has lightened his mood in between these intense episodes. He says, I am not feeling negative all the time now. He denies medication side effects. We talked about discharge disposition. He feels strongly that he needs to stay on his medication, therefore needs to find a different facility where he can both get the support to stop using substances but continue to take his psychiatric medications. Mental Status Exam MSE Comments: This is a short, well-nourished well-developed white male in hospital scrubs with adequate grooming and eye contact. No abnormal movements noted. He has some psychomotor agitation. Cooperative with exam. Speech was normal rate and volume. Mood described as depressed affect congruent. Thought process organized. Thought content: Patient endorsed suicidal ideation but denied homicidal ideation, there were no delusions reported or noted any auditory visual hallucinations. Attention and concentration were intact and memory appeared reliable but none were formally tested. He is alert and oriented x3. Insight and judgment is fair impulse control is impaired. Vitals/I&O/Wt Last Vital Signs Temp 98.4 F 09/19/21 14:00 Pulse 87 09/19/21 14:00 Resp 18 09/19/21 14:00 BP 144/88 09/19/21 14:00 Pulse Ox 98 09/19/21 14:00 09/19/21 09/19/21 09/19/21 06:59 14:59 22:59 Intake Total 240 / 240 Balance 240 / 240 Data NPU : 09/16/21 15:14 09/16/21 15:14 A&P Assessment and plan (1) Suicide ideation: Status: Acute (2) Other stimulant dependence, uncomplicated: Status: Acute (3) Cannabis dependence, uncomplicated: Status: Acute (4) Generalized anxiety disorder: Status: Acute (5) Major depressive disorder, recurrent severe without psychotic features: Status: Acute (6) Post-traumatic stress disorder, chronic: Status: Acute Additional A&P Information This is a 31-year-old white male with a long history of addiction, trauma, depression and anxiety who presents having relapsed and off of his medication open to restarting treatment. 1. Continue current medication. Started BuSpar 50 mg p.o. twice daily and Remeron 15 mg p.o. nightly. 2. Continue every 15 minute checks for safety. 3. Encourage individual, group and milieu therapies. 4. Encourage sober living treatment after discharge at the highest level of care to which he is willing to commit. Involuntary Hold Information 96 Hour Hold: 96 Hour Involuntary Admission: No Attestations NPU Medical Necessity Statement*: Inpatient hospitalization is medically necessary and the clinically appropriate intervention at this time. We will monitor medications and make changes as indicated. Likely length of stay 1-3 days. Coding Level of Care Code Acute School Cafeteria Cook Head for Chasity Bellamy Diagnoses Suicide ideation R45.851 Other stimulant dependence, uncomplicated F15.20 Cannabis dependence, uncomplicated F12.20 Generalized anxiety disorder F41.1 Major depressive disorder, recurrent severe without psychotic features F33.2 Post-traumatic stress disorder, chronic F43.12
[2021-09-19] MEDS: mirtazapine 15 mg Tablet PO (20:02)
[2021-09-19 20:07] VITALS: BP 137/90; PULSE 82; RESP 18; TEMP 36.6; O2SAT 98
--- NOTE | 2021-09-20 05:15 | PC.NURSE ---
EVENING- Patient up and active. Laughing and interacting well with others. Denies SI/HI or AVH at this time. No complaints voiced. NIGHT- In bed resting with eyes closed throughout night. No complaints voiced. No distress noted. PRNs- Received PRN Nicorette gum at 1999.
[2021-09-20 06:00] VITALS: BP 101/67; PULSE 63; RESP 16; TEMP 36.4; O2SAT 100
[2021-09-20] MEDS: BuSPIRONE 10 mg Tablet 15 MG PO ×2 (08:48→20:26)
[2021-09-20] MEDS: nicotine 2 mg Gum BUCCAL ×5 (08:51→20:27)
[2021-09-20 14:00] VITALS: BP 128/79; PULSE 86; RESP 17; TEMP 36.8; O2SAT 99
--- NOTE | 2021-09-20 17:59 | P.PN_ITS ---
Subjective NPU Subjective: Interval history: I met with the treatment team to discuss the patient's progress. They say he is considering going to [facility] for rehab following discharge from the hospital. The patient says he woke twice last night but his dreams were better. He was feeling really down in the afternoon. No suicidal ideation however. He says he is also more irritable. He says things he could brush off before now have a head up operator helper on his focus. We talked about his future plans. He is still wanting to go to [facility]. He also called his ex boss to ask about getting rehired. 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 Mental Status Exam MSE Comments: This is a short, well-nourished well-developed white male in hospital scrubs with adequate grooming and eye contact. No abnormal movements. Cooperative with exam. No acute distress. Speech was normal rate and volume. Mood described as quite sad in the afternoon, affect congruent. Thought process organized. Thought content: Now denies suicidal and homicidal ideation. No delusions reported or noted. No auditory or visual hallucinations. Attention and concentration were intact and memory appeared reliable but none were formally tested. He is alert and oriented x3. Insight and judgment are fair, impulse control is impaired. Vitals/I&O/Wt Last Vital Signs Temp 98.2 F 09/20/21 14:00 Pulse 86 09/20/21 14:00 Resp 17 09/20/21 14:00 BP 128/79 09/20/21 14:00 Pulse Ox 99 09/20/21 14:00 Data NPU : 09/16/21 15:14 09/16/21 15:14 A&P Assessment and plan (1) Suicide ideation: Status: Acute (2) Other stimulant dependence, uncomplicated: Status: Acute (3) Cannabis dependence, uncomplicated: Status: Acute (4) Generalized anxiety disorder: Status: Acute (5) Major depressive disorder, recurrent severe without psychotic features: Status: Acute (6) Post-traumatic stress disorder, chronic: Status: Acute Additional A&P Information This is a 31-year-old white male with a long history of addiction, trauma, depression and anxiety who presents having relapsed and off of his medication open to restarting treatment. 1. Continue current medication. 2. Continue every 15 minute checks for safety. 3. Encourage individual, group and milieu therapies. 4. Encourage sober living treatment after discharge at the highest level of care to which he is willing to commit. Involuntary Hold Information 96 Hour Hold: 96 Hour Involuntary Admission: No Attestations NPU Medical Necessity Statement*: Inpatient hospitalization is medically necessary and the clinically appropriate intervention at this time. We will monitor medications and make changes as indicated. Likely length of stay 2-4 days. Coding Level of Care Code Acute Switch Box Installer for [facility] Diagnoses Suicide ideation R45.851 Other stimulant dependence, uncomplicated F15.20 Cannabis dependence, uncomplicated F12.20 Generalized anxiety disorder F41.1 Major depressive disorder, recurrent severe without psychotic features F33.2 Post-traumatic stress disorder, chronic F43.12
[2021-09-20] MEDS: mirtazapine 15 mg Tablet PO (20:26)
[2021-09-20 20:28] VITALS: BP 142/101; PULSE 71; RESP 18; TEMP 36.8; O2SAT 98
[2021-09-21 06:00] VITALS: BP 142/101; PULSE 71; RESP 18; TEMP 36.8; O2SAT 98
[2021-09-21 06:49] VITALS: BP 99/63; PULSE 59; RESP 16; TEMP 36.6; O2SAT 98
[2021-09-21] MEDS: nicotine 2 mg Gum BUCCAL ×4 (08:50→21:47)
[2021-09-21] MEDS: BuSPIRONE 10 mg Tablet 15 MG PO ×3 (08:50→21:36)
--- NOTE | 2021-09-21 12:20 | P.PN_ITS ---
Subjective NPU Subjective: Interval history: I met with nursing to discuss the patient's progress. They say he has some active suicidal ideation, but no plan. The patient says his morning was rough. He has been getting down on himself. He slept pretty well last night. He has had some hot flashes and wonders if this could be his medication. Remeron can cause flulike symptoms. Mental Status Exam MSE Comments: This is a short, well-nourished well-developed white male in hospital scrubs with adequate grooming and eye contact. No abnormal movements. Cooperative with exam. No acute distress. Speech was normal rate and volume. Mood described as depressed, affect congruent. Thought process organized. Thought content: Denies suicidal and homicidal ideation. No delusions reported or noted. No auditory or visual hallucinations. Attention and concentration were intact and memory appeared reliable but none were formally tested. He is alert and oriented x3. Insight and judgment are fair, impulse control is impaired. Vitals/I&O/Wt Last Vital Signs Temp 98.0 F 09/22/21 06:00 Pulse 60 09/22/21 06:00 Resp 17 09/22/21 06:00 BP 99/64 09/22/21 06:00 Pulse Ox 98 09/22/21 06:00 Weight last 48 hrs Weight 70.307 kg Data NPU : 09/16/21 15:14 09/16/21 15:14 A&P Assessment and plan (1) Suicide ideation: Status: Acute (2) Other stimulant dependence, uncomplicated: Status: Acute (3) Cannabis dependence, uncomplicated: Status: Acute (4) Generalized anxiety disorder: Status: Acute (5) Major depressive disorder, recurrent severe without psychotic features: Status: Acute (6) Post-traumatic stress disorder, chronic: Status: Acute Additional A&P Information This is a 31-year-old white male with a long history of addiction, trauma, depression and anxiety who presents having relapsed and off of his medication open to restarting treatment. 1. Continue current medication. 2. Continue every 15 minute checks for safety. 3. Encourage individual, group and milieu therapies. 4. Encourage sober living treatment after discharge at the highest level of care to which he is willing to commit. Involuntary Hold Information 96 Hour Hold: 96 Hour Involuntary Admission: No Attestations NPU Medical Necessity Statement*: Inpatient hospitalization is medically necessary and the clinically appropriate intervention at this time. We will monitor medications and make changes as indicated. Likely length of stay 2-4 days. Coding Level of Care Code Acute Pastry Cook Apprentice for Chasity Fwd Diagnoses Suicide ideation R45.851 Other stimulant dependence, uncomplicated F15.20 Cannabis dependence, uncomplicated F12.20 Generalized anxiety disorder F41.1 Major depressive disorder, recurrent severe without psychotic features F33.2 Post-traumatic stress disorder, chronic F43.12
[2021-09-21 14:00] VITALS: BP 131/87; PULSE 70; RESP 17; TEMP 36.4; O2SAT 98
[2021-09-21] MEDS: acetaminophen 325 mg Tablet 650 MG PO (15:34)
[2021-09-21] MEDS: trazodone 50 mg Tablet PO (21:35)
[2021-09-21] MEDS: hyDROXYzine 25 mg Capsule 50 MG PO (21:35)
[2021-09-21] MEDS: mirtazapine 15 mg Tablet PO (21:36)
[2021-09-21 22:00] VITALS: BP 144/94; PULSE 99; RESP 18; TEMP 36.7; O2SAT 97
--- NOTE | 2021-09-22 01:21 | PC.NURSE ---
Patient requested and received PRN medications- Trazodone- 2134 for sleep aid. Vistaril- 2134 for anxiety. Nicotine gum- 2146. All PRN medications to good effect. No further complaints at this time.
[2021-09-22 06:00] VITALS: BP 99/64; PULSE 60; RESP 17; TEMP 36.7; O2SAT 98
[2021-09-22] MEDS: BuSPIRONE 10 mg Tablet 15 MG PO ×3 (08:50→20:31)
[2021-09-22] MEDS: nicotine 2 mg Gum BUCCAL ×3 (10:16→20:48)
--- NOTE | 2021-09-22 12:39 | PM.NPN ---
Subjective NPU Subjective: Interval history: The patient says that he is doing better today. His mood is pretty good, and he does not feel depressed or agitated. His night was better last night. He took Remeron, trazodone, and hydroxyzine at bedtime. He notes now that he is not overwhelmed by his feelings, even when challenging things happen. For example, he was trying to figure out how to get his clothes. He said instead of getting angry, he was able to look for solutions. He notices that he is able to think more clearly now. No suicidal or homicidal ideation. He does continue to have the hot flashes which may be related to Remeron. Mental Status Exam MSE Comments: This is a short, well-nourished well-developed white male in hospital scrubs with adequate grooming and eye contact. No abnormal movements. Cooperative with exam. No acute distress. Speech was normal rate and volume. Mood described as improved, affect is brighter. Thought process organized. Thought content: Denies suicidal and homicidal ideation. No delusions reported or noted. No auditory or visual hallucinations. Attention and concentration were intact and memory appeared reliable but none were formally tested. He is alert and oriented x3. Insight and judgment are fair, impulse control is impaired. Vitals/I&O/Wt Last Vital Signs Temp 98.0 F 09/22/21 06:00 Pulse 60 09/22/21 06:00 Resp 17 09/22/21 06:00 BP 99/64 09/22/21 06:00 Pulse Ox 98 09/22/21 06:00 Weight last 48 hrs Weight 70.307 kg Data NPU : 09/16/21 15:14 09/16/21 15:14 A&P Assessment and plan (1) Major depressive disorder, recurrent severe without psychotic features: Status: Acute (2) Post-traumatic stress disorder, chronic: Status: Acute (3) Generalized anxiety disorder: Status: Acute (4) Suicide ideation: Status: Acute (5) Other stimulant dependence, uncomplicated: Status: Acute (6) Cannabis dependence, uncomplicated: Status: Acute Additional A&P Information This is a 31-year-old white male with a long history of addiction, trauma, depression and anxiety who presents having relapsed and off of his medication open to restarting treatment. 1. Continue current medication. We will increase bedtime trazodone to 100 mg, to see if this enables him to sleep without taking the hydroxyzine. 2. Continue every 15 minute checks for safety. 3. Encourage individual, group and milieu therapies. 4. Encourage sober living treatment after discharge at the highest level of care to which he is willing to commit. Involuntary Hold Information 96 Hour Hold: 96 Hour Involuntary Admission: No Attestations NPU Medical Necessity Statement*: Inpatient hospitalization is medically necessary and the clinically appropriate intervention at this time. We will monitor medications and make changes as indicated. Likely length of stay 1-3 days. Coding Level of Care Code Acute Brake Lining Finisher Asbestos for Ariannag Fwd Diagnoses Major depressive disorder, recurrent severe without psychotic features F33.2 Post-traumatic stress disorder, chronic F43.12 Generalized anxiety disorder F41.1 Suicide ideation R45.851 Other stimulant dependence, uncomplicated F15.20 Cannabis dependence, uncomplicated F12.20
[2021-09-22 14:00] VITALS: BP 141/95; PULSE 92; RESP 16; TEMP 36.3; O2SAT 97
--- NOTE | 2021-09-22 16:15 | NUR.SHIFT ---
Fer was seen by Dr. Longo and had his HS Trazodone increased to 100mg HS prn. He reports he slept well last night. Has eaten well at both meals and snack times. He has been every interactive with his peers. Has needed multiple redirects about sitting to closely and under blankets next to female patients.
[2021-09-22 20:31] VITALS: BP 132/75; PULSE 85; RESP 21; TEMP 36.6; O2SAT 97
[2021-09-22] MEDS: mirtazapine 15 mg Tablet PO (20:31)
[2021-09-22] MEDS: trazodone 50 mg Tablet 100 MG PO (20:48)
[2021-09-22] MEDS: OLANZapine 5 mg ODT PO (20:48)
[2021-09-22] MEDS: hyDROXYzine 25 mg Capsule 50 MG PO (21:06)
--- NOTE | 2021-09-22 22:19 | PC.NURSE ---
Upon assessment patient in his room. He is alert/oriented x3, good eye contact and pleasant. He denied any complaints and stated he was feeling good . He has been social with peers. Will continue to monitor and follow plan of care. Q 15 min safety checks per protocol.
[2021-09-23 06:00] VITALS: BP 107/65; PULSE 57; RESP 17; TEMP 36.8; O2SAT 97
[2021-09-23] MEDS: BuSPIRONE 10 mg Tablet 15 MG PO ×3 (08:11→20:54)
[2021-09-23 11:02] VITALS: BP 107/65; PULSE 57; RESP 17; TEMP 36.8; O2SAT 97
[2021-09-23] MEDS: nicotine 2 mg Gum BUCCAL ×3 (12:00→20:55)
[2021-09-23 14:00] VITALS: BP 143/81; PULSE 79; RESP 18; TEMP 36.7; O2SAT 97
--- NOTE | 2021-09-23 16:04 | P.PN_ITS ---
Subjective NPU Subjective: Interval history: The patient says his mood has been fairly decent, but he has been anxious about where he is going next. He says he slept pretty well last night. No auditory or visual hallucinations. No suicidal or homicidal ideation. No medication side effects. We talked about his desire to go to the [facility]. He says he is ready to learn how not to use drugs. Mental Status Exam MSE Comments: This is a short, well-nourished well-developed white male in h ospital scrubs with adequate grooming and eye contact. No abnormal movements. Cooperative with exam. No acute distress. Speech was normal rate and volume. Mood described as improved, affect is brighter. Thought process organized. Thought content: Denies suicidal and homicidal ideation. No delusions reported or noted. No auditory or visual hallucinations. Attention and concentration were intact and memory appeared reliable but none were formally tested. He is alert and oriented x3. Insight and judgment are fair, impulse control is impaired. Vitals/I&O/Wt Last Vital Signs Temp 98.0 F 09/23/21 14:00 Pulse 79 09/23/21 14:00 Resp 18 09/23/21 14:00 BP 143/81 09/23/21 14:00 Pulse Ox 97 09/23/21 14:00 Weight last 48 hrs Weight 70.307 kg Data NPU : 09/16/21 15:14 09/16/21 15:14 A&P Assessment and plan (1) Suicide ideation: Status: Acute (2) Other stimulant dependence, uncomplicated: Status: Acute (3) Cannabis dependence, uncomplicated: Status: Acute (4) Generalized anxiety disorder: Status: Acute (5) Major depressive disorder, recurrent severe without psychotic features: Status: Acute (6) Post-traumatic stress disorder, chronic: Status: Acute Additional A&P Information This is a 31-year-old white male with a long history of addiction, trauma, depression and anxiety who presents having relapsed and off of his medication open to restarting treatment. 1. Continue current medication. We will increase bedtime trazodone to 100 mg, to see if this enables him to sleep without taking the hydroxyzine. 2. Continue every 15 minute checks for safety. 3. Encourage individual, group and milieu therapies. 4. Encourage sober living treatment after discharge at the highest level of care to which he is willing to commit. Involuntary Hold Information 96 Hour Hold: 96 Hour Involuntary Admission: No Attestations NPU Medical Necessity Statement*: Inpatient hospitalization is medically necessary and the clinically appropriate intervention at this time. We will monitor medications and make changes as indicated. Anticipate discharge tomorrow. Coding Level of Care Code Acute Campus Chaplain for Chasity Fwd Diagnoses Suicide ideation R45.851 Other stimulant dependence, uncomplicated F15.20 Cannabis dependence, uncomplicated F12.20 Generalized anxiety disorder F41.1 Major depressive disorder, recurrent severe without psychotic features F33.2 Post-traumatic stress disorder, chronic F43.12
--- NOTE | 2021-09-23 19:26 | NPU.GN ---
[facility] Group Topic:Stress General Mood of Group: Patient was in group on time, dressed appropriately, with good hygiene. The patient participated in group activities. Today the group was able to work on the stress worksheet. Each individually and together. The patient did share information from the worksheet with the group. The patient did ask questions and responded to other patients in the group.
[2021-09-23 19:36] VITALS: BP 126/87; PULSE 74; RESP 20; TEMP 36.6; O2SAT 99
[2021-09-23] MEDS: mirtazapine 15 mg Tablet PO (20:53)
[2021-09-23] MEDS: hyDROXYzine 25 mg Capsule 50 MG PO (20:53)
[2021-09-23] MEDS: trazodone 50 mg Tablet 100 MG PO (20:54)
--- NOTE | 2021-09-24 01:05 | PC.NURSE ---
Patient up in evening. Pacing in fabian, states he is getting his miles in. Calm and cooperative. Reports that anxiety and depression have both improved but does endorse mild anxiety this evening. Took PRN Vistaril to good effect for this. Denies and AVH this evening. Denies SI/HI. Also took PRN Trazodone to geed effect. Patient in bed resting with eyes closed at this time. Has had no further complaints voiced. No signs of distress noted.
[2021-09-24 06:00] VITALS: BP 109/72; PULSE 67; RESP 17; TEMP 36.6; O2SAT 96
[2021-09-24] MEDS: nicotine 2 mg Gum BUCCAL ×2 (09:13→11:50)
[2021-09-24] MEDS: BuSPIRONE 10 mg Tablet 15 MG PO (10:25)
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
== END 2021-09-24 12:47 | disposition home or self-care (01) | DRG 885 ==
LOC: ER 13:40 → NP 09-18 12:04
PROVIDERS: Admitting Provider Psychiatry & Neurology Psychiatry; Emergency Provider Emergency Medicine; Visit Provider Psychiatry & Neurology Child & Adolescent Psychiatry
DX: F33.2 Major depressive disorder, recurrent severe without psychotic features (principal); R45.851 Suicidal ideations; F15.20 Other stimulant dependence, uncomplicated; F12.280 Cannabis dependence with cannabis-induced anxiety disorder; F41.1 Generalized anxiety disorder; F43.12 Post-traumatic stress disorder, chronic; F17.220 Nicotine dependence, chewing tobacco, uncomplicated; Z91.51 Personal history of suicidal behavior; Z81.4 Family history of other substance abuse and dependence; Z62.810 Personal history of physical and sexual abuse in childhood; Z63.0 Problems in relationship with spouse or partner
CPT/HCPCS: 80048; 80306; 80307; 85025; 97150; 97165; 99285

== ENCOUNTER → 2023-01-09 09:30 | Outpatient (BNVA) | payer SELFPAY | PROVIDERS: Visit Provider Family Medicine Adult Medicine | DX: S67.42XA Crushing injury of left wrist and hand, initial encounter (principal); S67.41XA Crushing injury of right wrist and hand, initial encounter; W23.1XXA Caught, crushed, jammed, or pinched between stationary objects, initial encounter | CPT/HCPCS: 73110; 73130 ==

== ENCOUNTER 2023-07-27 07:19 | Emergency (ER) | payer SELFPAY ==
[2023-07-27 07:24] VITALS: BP 135/82; PULSE 69; RESP 18; TEMP 36.9; O2SAT 95; BMI 24.3
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
[2023-07-27 07:39] LABS: Basophils # 0.1 10^3/uL (0.0-0.1); Basophils % 0.8 %; Eosinophils # 0.4 10^3/uL (0.0-0.8); Eosinophils % 5.5 %; Hematocrit 47.1 % (37-53); Lymphocytes # 2.6 10^3/uL (0.8-4.8); Lymphocytes % 33.7 %; Mean Corpuscular HGB Conc 33.3 g/dL (30-55); Mean Corpuscular Hemoglobin 31.8 pg (27-33); Mean Corpuscular Volume 95.3 fl (82-101); Monocytes # 0.5 10^3/uL (0.2-0.9); Monocytes % 6.6 %; Neutrophils # 4.14 10^3/uL (1.8-7.7); Neutrophils % 53.3 %; Nucleated Red Blood Cells % 0 %; Platelet Count 232 10^3/cmm (157-399); Red Blood Count 4.94 10^6/uL (3.85-5.65); Red Cell Distribution Width 12.1 % (12.1-15.1); White Blood Count 7.77 10^3/uL (3.29-11.43)
--- NOTE | 2023-07-27 07:45 | CT_ITS ---
WS: [id number] CT ABDOMEN AND PELVIS WITH CONTRAST HISTORY: lower abdominal pain, cramping, bloody stools TECHNIQUE: Imaging performed of the abdomen and pelvis with IV contrast. Single phase imaging of the abdomen. Coronal and sagittal reformats are submitted. All CT scans at [facility] use at [address] one of these dose optimization techniques: automated exposure control; mA and/or kV adjustment per patient size (includes targeted exams where dose is matched to clinical indication); or iterative re construction. IV CONTRAST: Omnipaque 350; 100 mL IV. Oral contrast: No DLP: 353.04 mGy.cm COMPARISON: None available. Lower thorax: Lung bases are clear. Heart is normal size. No hiatal hernia. Liver/biliary system: Normal size with no intrahepatic dilatation. Gallbladder: Normally distended gallbladder. Areas of decreased attenuation within the lumen. No sign ificant adjacent inflammation and no bile duct dilatation. Pancreas: Normal size pancreas and pancreatic duct. No adjacent inflammation. Spleen: Normal size spleen. No mass or infarct. Adrenal glands: Normal. Right kidney: Normal size kidney. Simple cyst upper pole 10 mm. Nonobstructing calcification 8 mm in the lower pole. No obstruction or solid mass. Left kidney: Too small to characterize hypodensities within the parenchyma. There is a largest cyst i n the lower pole at 11 mm. Aorta: Normal. Lymphadenopathy: None. Free fluid: None. GI tract: Stomach is moderately distended with food products and fluid. No small bowel obstruction. M ild diffuse constipation. Normal appendix. There are a few scattered distal colon diverticula without acute diverticulitis. No rectal wall thickening. Abdominal wall: Unremarkable abdominal wall. No hernia. Pelvis: Minimally distended urinary bladder. No free fluid or adenopathy. Bones: Mild degenerative disc disease at L5-S1. IMPRESSION: 1. No GI tract obstruction or colitis. 2. Suspect cholelithiasis. Fat-containing gallstones are likely. No evidence for acute cholecystitis . 3. Moderate distention of the stomach with food products. 4. Bilateral renal cortical hypodensities and cysts and a nonobstructing lower pole calcification RI GHT kidney.
[2023-07-27] MEDS: ondansetron 2 mg/ML SDV 2 mL 4 MG IVP (07:47)
[2023-07-27] MEDS: sodium chloride 0.9% 1,000 ML 999 ML IV (07:48)
[2023-07-27 07:49] LABS: INR 0.96 (0.8-1.2)
[2023-07-27 07:50] LABS: Partial Thromboplastin Time 27.9 SECONDS (23.9-36.7)
[2023-07-27 07:56] VITALS: BP 118/78; PULSE 54; RESP 14; O2SAT 98
[2023-07-27 07:57] LABS: Alanine Aminotransferase 29 U/L (0-41); Albumin Level 4.5 g/dL (3.5-5.2); Alkaline Phosphatase 62 U/L (40-130); Anion Gap 12.1 (5-19); Aspartate Amino Transferase 24 U/L (0-40); Blood Urea Nitrogen 13 mg/dL (6-20); Calcium 9.1 mg/dL (8.5-10.5); Carbon Dioxide 27 mmol/L (22-29); Chloride 106 mmol/L (98-107); Globulin 2.2 g/dL (1.3-4.6); Glomerular Filtration Rate 96.6 mL/min (90-130); Glucose 107 mg/dL (65-115); Lipase 53 U/L (13-60); Osmolality Calculated 293 mOsm/kg (285-295); Potassium 4.1 mmol/L (3.5-5.1); Sodium 141 mmol/L (136-145); Total Bilirubin 0.3 mg/dL (0.15-1.2); Total Protein 6.7 g/dL (6.6-8.7)
[2023-07-27] MEDS: iohexol 350 mg/mL 500 mL Btl (per mL) IV (08:11)
[2023-07-27 08:16] LABS: Add Urine Microscopic? NO; Charge for UA Resulting for Rev
[2023-07-27 08:34] LABS: Urine Appearance Clear (CLEAR); Urine Color Yellow (Yellow); pH Urine 6 (5-7)
[2023-07-27 08:35] LABS: Bilirubin Urine Neg (Negative); Blood Urine Neg (Negative); Glucose Urine UA Norm (Normal); Ketones Urine Negative (Negative); Leukocyte Esterase Urine Negative (Negative); Nitrate Urine Negative (Negative); Protein Urine Neg (Negative); Urobilinogen Urine Norm (Negative)
[2023-07-27 08:57] VITALS: BP 111/74; PULSE 57; RESP 14; O2SAT 98
--- NOTE | 2023-07-27 14:19 | DCPLANNER ---
Addendum entered by Mag Arevalo 08/03/23 08:47: environmental programs manager received the following message from the general surgery clinic regarding follow up appointment: NO ANSWER NO VOICEMAIL Original Note: environmental programs manager had message to schedule a follow up appointment for patient for general surgery. environmental programs manager sent patients information to the front office staff at general surgery. Patients information will be printed and reviewed. Clinic will call patient with appointment information.
== END 2023-07-27 08:59 | disposition home or self-care (01) ==
PROVIDERS: Emergency Provider Physician Assistant
DX: K92.1 Melena (principal); F17.220 Nicotine dependence, chewing tobacco, uncomplicated
CPT/HCPCS: 74177; 80053; 81003; 83690; 85025; 85610; 85730; 96374; 99285; J2405; J7030; Q9967